=== PATIENT | male | born 1955 | race Caucasian/White ===

== ENCOUNTER 2016-07-01 13:28 | Day surgery (SDC) | payer OTHER ==
[~2016-07-01] VITALS: Ht 177.8 cm; Wt 108.0 kg
[~2016-07-01 13:28] MED LIST: BUPIVACAINE/PF-EPI 0.25% 1:200K ONE; CARI350T14 PO; FENTANYL PF 250 MCG/5ML ONE; FLUORESCEIN SODIUM 500 MG/5 ML ONE; HYDR-3144 PO; IBUP800T PO; INDOCYANINE GREEN 25 MG VIAL ONE; MIDAZOLAM 1 MG/ML, 2ML ONE; [UNRECOGNIZED DRUG - OTHER] PO
[2016-07-01 13:55] VITALS: BP 137/89
[2016-07-01] MEDS ORDERED: LACTATED RINGERS 1,000 ML IV SCH (13:57)
[2016-07-01] MEDS ORDERED: BUPIVACAINE/PF-EPI 0.25% 1:200K ONE (14:39)
[2016-07-01] MEDS ORDERED: NEOSTIGMINE 1 MG/ML, 10ML ONE (14:47)
[2016-07-01] MEDS ORDERED: ROCURONIUM 10 MG/ML ONE (14:47)
[2016-07-01] MEDS ORDERED: CEFAZOLIN 1,000 MG ONE (14:47)
[2016-07-01] MEDS ORDERED: PROPOFOL 10 MG/ML, 20ML ONE (14:47)
[2016-07-01] MEDS ORDERED: GLYCOPYRROLATE 0.2MG/1ML ONE (14:47)
[2016-07-01] MEDS ORDERED: MEPERIDINE/PF 25MG/0.5ML IVPush PRN (15:00)
[2016-07-01] MEDS ORDERED: PROMETHAZINE 25 MG/ML, 1ML IV PRN (15:00)
[2016-07-01] MEDS ORDERED: ONDANSETRON 2MG/ML, 2ML IVPush PRN (15:00)
[2016-07-01] MEDS ORDERED: hydrALAzine 20 MG/ML, 1ML IV PRN (15:00)
[2016-07-01] MEDS ORDERED: LABETALOL 5MG/ML, 20ML IV PRN (15:00)
[2016-07-01] MEDS ORDERED: OXYcodone 5 MG/5 ML ORAL.SOL UDC PO PRN (15:00)
[2016-07-01] MEDS ORDERED: METOCLOPRAMIDE 5 MG/ML, 2ML IV PRN (15:00)
[2016-07-01] MEDS ORDERED: FENTANYL PF 100 MCG/2ML ONE ×3 (15:45→17:32)
[2016-07-01] MEDS ORDERED: ACETAMINOPHEN 650 MG/20.3 ML UDC ONE (16:37)
[2016-07-01] MEDS ORDERED: HYDROmorphone 2 MG/ML, 1ML ONE (16:37)
[2016-07-01] MEDS ORDERED: OXYcodone 5 MG/5 ML ORAL.SOL UDC ONE (16:38)
[2016-07-01] MEDS: HYDROmorphone 1 MG/ML, 1ML IV PRN ×4 (16:40→17:15)
[2016-07-01] MEDS: FENTANYL PF 100 MCG/2ML IV PRN ×3 (16:42→17:34)
[2016-07-01] MEDS ORDERED: METOCLOPRAMIDE 5 MG/ML, 2ML ONE (16:52)
[2016-07-01] MEDS ORDERED: ONDANSETRON 2MG/ML, 2ML ONE (16:52)
== END 2016-07-01 20:44 | disposition home or self-care (01) ==
LOC: OUT 13:28
PROVIDERS: ATTEND Surgery
DX: K40.20 Bilateral inguinal hernia, without obstruction or gangrene, not specified as recurrent (principal); D17.6 Benign lipomatous neoplasm of spermatic cord; M19.90 Unspecified osteoarthritis, unspecified site; F17.210 Nicotine dependence, cigarettes, uncomplicated; Z72.89 Other problems related to lifestyle
CPT/HCPCS: 49650; 93005; C1781; J0690; J1170; J2250; J2405; J2704; J2710; J3010; J3490; J7120; S2900